=== PATIENT | female | born 1995 | race Caucasian/White ===

== ENCOUNTER 2021-02-10 06:40 | Inpatient (IN) | payer OTHER ==
[~2021-02-10] VITALS: Ht 162.6 cm; Wt 53.5 kg
[2021-02-10] MEDS ORDERED: APRISO0.375 GM PO (06:47)
== END 2021-02-14 15:00 | disposition home or self-care (01) | DRG 386 ==
LOC: ER 06:40 → MEDI 11:56
PROVIDERS: ADMIT Internal Medicine; ATTEND Internal Medicine
PROC: 02HV33Z Insertion of Infusion Device into Superior Vena Cava, Percutaneous Approach (ICD-10-PCS; 2021-02-10)
PROC: BW2110Z Computerized Tomography (CT Scan) of Abdomen and Pelvis using Low Osmolar Contrast, Unenhanced and Enhanced (ICD-10-PCS; principal; 2021-02-11)
DX: K51.811 Other ulcerative colitis with rectal bleeding (principal); K92.1 Melena; D50.9 Iron deficiency anemia, unspecified; D72.828 Other elevated white blood cell count; Z20.822 Contact with and (suspected) exposure to COVID-19; Z90.09 Acquired absence of other part of head and neck